=== PATIENT | male | born 1940 | race Caucasian/White ===

== ENCOUNTER 2019-11-29 15:07 | Emergency (ER) | payer MEDICARE, OTHER, SELFPAY ==
[2019-11-29] VITALS (12 sets, daily range): BP systolic 80–122; BP diastolic 46–97; PULSE 16–77; RESP 12–74; TEMP 36.4; O2SAT 74–97; BMI 29.5
--- NOTE | 2019-11-29 15:33 | EKG12_ITS ---
Test Reason : Blood Pressure : / mmHG Vent. Rate : 097 BPM Atrial Rate : 023 BPM P-R Int : 000 ms QRS Dur : 010 ms QT Int : 286 ms P-R-T Axes : 000 000 111 degrees QTc Int : 363 ms Sinus vs Ectopic Atrial Rhythm with 3:1 High Grade AV Block With a Ventricular Escape Rhythm Confirmed by MANJU MULLEN, TANI ([id number]), food editor NU US ([id number]) on 12/02/2019 11:40:33 AM Referred By: Confirmed By:TANI NUNES MD
--- NOTE | 2019-11-29 15:33 | ED.RN ---
pt being paced at 30ma 60 bpm
[2019-11-29] MEDS: Aspirin 81 MG TAB.CHEW 324 MG PO (15:41)
[2019-11-29] MEDS: Atropine Sulfate 1 MG/10 ML Syringe IV (15:43)
--- NOTE | 2019-11-29 15:51 | ED.DCSUM_ITS ---
- ER Visit Summary Date of Service: 11/29/19 Chief Complaint: Dizziness History of Present Illness: The patient is a 79 M who presents with dizziness that began today. Patient describes the dizziness as a spinning sensation. Patient states it is better with standing. EMS noted that the patient's heart rate was 36 and his blood pressure was low. EMS administered 1 mg of atropine which improved his blood pressure but not his heart rate. Patient admits to some shortness of breath and cough. Patient is a smoker however. Patient denies any chest pain or palpitations. Patient admits to subjective chills but denies any fevers. Physical Examination: Vital signs are stable except for heart rate of 23. Patient is afebrile. Patient is in no acute distress. Patient is awake, alert, and oriented x3. Cranial nerves II through XII are intact. There are no focal motor or sensory deficits noted. Oral mucosa is pink and moist. Heart was regular and bradycardic. Lungs were diminished bilaterally. There is adequate respiratory effort noted. Abdomen is soft. Bowel sounds are normal. There is no tenderness. Cranial nerves II through XII are intact. There are no focal motor or sensory deficits noted. Test Results: EKG showed third-degree heart block with a rate of approximately 20. There is some T wave inversion in the precordial leads. There are no acute ST changes. CBC was within normal limits. Basic metabolic profile showed an elevated BUN of 129 and a creatinine of 5.7. There are elevated compared to previous results from 2017. Emergency Department Course and Treatment: Patient was given another dose of atropine here. Patient was placed on transcutaneous pacer. Patient was capturing. Patient is tolerating the transcutaneous pacer. Case was discussed with Dr. Ross from cardiology. He will insert a temporary transvenous pacer. He recommended transferring the patient since Dr. Dang is out of town and he is the only one who does permanent pacemakers. Patient requested to go back to [facility] where his cardiac bypass was performed. Case was discussed with the transfer line. Patient was accepted to the service of Dr. Gallo. Patient understood and was agreeable with the plan. All questions were answered. Disposition: Transfer to [facility]. Impression: 1. Complete heart block 2. Acute kidney injury Critical care time: 45 minutes. This was time spent obtaining history, performing physical examination, documenting, interpreting test results, discussion with consultants, and determining disposition. This note was generated with Desigual dictation software. It may contain incorrect words, spelling, and punctuation that were not noted in review of the chart prior to signing ED Disposition - Plan for ED Patient: Disposition: Acute Care Hospital - Other Diagnosis: Complete heart block, Acute kidney injury Referrals: Christopher Wiseman MD [Primary Care Provider] -
[2019-11-29 15:57] LABS: Absolute Neutrophil Count 3.9 X10^3/uL (2.0-7.7); Basophil# 0.02 X10^3/uL; Basophil% 0.4 % (0-1); Eosinophil# 0.04 X10^3/uL; Eosinophils% 0.7 % (0-5); Hematocrit 39.8 % (40-54); Hemoglobin 12.5 g/dL (13.0-16.5); Lymphocyte % 18.1 % (19-41); Mean Corp Hgb Conc 31.4 g/dL (32-36); Mean Corpuscular Volume 92.3 fL (80-94); Mean Platelet Vol. 12.8 fl (6.2-12.0); Monocyte# 0.57 X10^3/uL; Monocyte% 10.3 % (0-10); NRBC Flagged by Analyzer 0 % (0-5); Neutrophil # 3.88 X10^3/uL (2.7-7.7); Neutrophil % 70.1 % (47-70); Platelet Count 127 K/mm3 (150-450); RBC Distribution Width CV 15.5 % (11.6-14.6); RBC Distribution Width SD 52.5 fl (35.1-43.9); Red Blood Count 4.31 M/mm3 (4.6-6.2); White Blood Count 5.5 K/mm3 (4.4-11.0)
--- NOTE | 2019-11-29 16:00 | RAD_ITS ---
STUDY: X-RAY CHEST REASON FOR EXAM: Male, 79 years old. INCREASED WEAKNESS TECHNIQUE: Single frontal view of the chest. COMPARISON: None. FINDINGS: There are prominent interstitial markings. There is a right pleural effusion. Sternal cerclage wires are present from a prior sternotomy. There is cardiomegaly. Normal mediastinum and tristan. Normal visualized pulmonary arteries. Normal visualized aortic arch and descending thoracic aorta. There are diffuse degenerative changes of the visualized thoracic spine. Normal visualized ribs, clavicles, and shoulders. There is no demonstrated abnormality of the visualized soft tissue structures of the upper abdomen. RAD/Chest 1 View (Portable) IMPRESSION: Prominent interstitial markings, a nonspecific finding may be secondary to underlying edema and/or an infectious process. Right pleural effusion, cannot exclude associated right basilar atelectasis and/or pneumonia. Cardiomegaly. Electronically Signed: Vidhi Melchor MD at 16:22 EDT Tel , Service support ,
--- NOTE | 2019-11-29 16:25 | CON.PCM_ITS ---
Problem List (1) Dizziness Status: Acute (2) High-grade atrioventricular block Status: Acute (3) CAD (coronary artery disease) Status: Chronic Qualifiers: Coronary Disease-Associated Artery/Lesion type: [place] artery [place] vs. transplanted heart: [place] heart Associated angina: without angina Qualified Code(s): I25.10 - Atherosclerotic heart disease of [place] coronary artery without angina pectoris (4) S/P CABG (coronary artery bypass graft) Status: Chronic (5) CHF (congestive heart failure) Status: Chronic (6) COPD (chronic obstructive pulmonary disease) Status: Chronic (7) Restless leg syndrome Status: Acute (8) Renal mass Status: Chronic Reason for Consult Date of Consultation: 11/29/19 History of Present Illness: The patient is a 79 year old white male who presents for dizziness with subsequent findings of high-grade AV block with a history of CAD, CABG, CHF, COPD, restless leg syndrome, and the reported renal mass . The patient apparently had a diagnosis of CAD and underwent CABG at [facility] in [place], [place] in 2008. He states this past summer he was at the [facility] Main campus of being evaluated for a renal mass. He did not undergo surgery based upon cardiovascular concerns with CHF. He was treated medically and lost several pounds of fluid. He was told he may have blockages but no other cardiovascular testing was performed that he recalls. He states that over the past week he has felt dizzy. He has had episodes of diarrhea. There has been no obvious fevers, chills, or night sweats. He has had no nausea or emesis. Based upon his ongoing symptoms he presented to the EMS system for evaluation. He was found to have an underlying bradycardia dysrhythmia and concerns of complete heart block . He was brought to [facility] for further evaluation. An ECG was performed which appeared to demonstrate at that time concerns of high-grade AV block with 3-1 AV block. He underwent laboratory study. His cardiac enzymes are pending at this time. His chest x-ray is pending at this time. He was placed on a temporary transcutaneous pacemaker. He was referred for cardiovascular evaluation for temporary transvenous pacemaker. At the moment he denies any ongoing chest discomfort. He states he has chronic shortness of breath related to his history of COPD. He denies any episodes of acute orthopnea or PND. There is been no near syncope or syncope reported. [] Past Medical History Allergies/Adverse Reactions: Allergies No Known Allergies Allergy (Verified 11/29/19 15:14) Home Medications: Ambulatory Orders Medication Instructions Recorded Acetaminophen/Diphenhydramine 1 each PO QHS 03/14/16 [Tylenol Pm Ex-Strength Caplet] Albuterol IH (ProAir) [Proair Hfa 1 - 2 puff INHALATION Q6H PRN PRN 03/14/16 (SP)Vent Pts] Aspirin E.C. [Ecotrin] 81 mg PO DAILY@0800 03/14/16 Carvedilol [Coreg] 3.125 mg PO BID 03/14/16 Diazepam [Valium] 5 mg PO QHS 03/14/16 Ezetimibe [Zetia] 10 mg PO DAILY 03/14/16 Losartan Potassium [Cozaar] 100 mg PO DAILY 03/14/16 Metformin HCl [Metformin HCl ER] 1,000 mg PO BID 03/14/16 Pramipexole Di-HCl [Mirapex] 0.25 mg PO TID 03/14/16 Budesonide/Formoterol Fumarate 2 gm IH BID 11/29/19 [Symbicort 160-4.5 Mcg Inhaler] Bumetanide 1 mg PO DAILY 11/29/19 Insulin Degludec [Tresiba] 20 unit SQ DAILY 11/29/19 Lovastatin 20 mg PO DAILY 11/29/19 Spironolactone 25 mg PO BID 11/29/19 Past Medical History (Chronic Problems): Chronic Problems CAD (coronary artery disease) (Chronic) S/P CABG (coronary artery bypass graft) (Chronic) CHF (congestive heart failure) (Chronic) Renal mass (Chronic) COPD (chronic obstructive pulmonary disease) (Chronic) Smoking Status: Current every day smoker Alcohol: None Drugs: None Subjectve: This is a 79-year-old white male who appears to be resting reasonably comfortably at the moment with a temporary transcutaneous pacemaker in place. Objective: Vital Signs Temp Pulse Resp BP Pulse Ox 97.6 F L 60 15 122/70 H 94 11/29/19 15:07 11/29/19 16:23 11/29/19 16:23 11/29/19 16:23 11/29/19 16:23 Oxygen Flow Rate (L/min) 3 Oxygen Delivery Method Nasal Cannula Weight: 206 lb 2.115 oz Body Mass Index (BMI) 29.5 General: Awake, Alert, Oriented x 3, Cooperative, - - Wearing O2 nasal cannula HEENT: Atraumatic, Normocephalic, PERRL Neck: Supple, Good ROM Lungs: - - No obvious rales or rhonchi Cardiovascular: Regular Rhythm, Normal S1, Normal S2 Abdomen: Bowel Sounds Present, Soft Extremities: Moderate RLE Edema, Moderate LLE Edema, - - Chronic appearing bilateral lower extremity peripheral pitting edema Psych/Mental Status: Appropriate 11/29/19 15:25: WBC 5.5, RBC 4.31 L, Hgb 12.5 L, Hct 39.8 L, MCV 92.3, MCH 29.0, MCHC 31.4 L, Plt Count 127 L, MPV 12.8 H, Immature Gran % (Auto) 0.400, Neut % (Auto) 70.1 H, Lymph % (Auto) 18.1 L, Bates % (Auto) 10.3 H, Eos % (Auto) 0.7, Baso % (Auto) 0.4, Absolute Neuts (auto) 3.9, Nucleated RBC % 0 Rhythm: Sinus rhythm with 3-1 AV block EKG: As noted above Assessment/Plan 1. Dizziness Patient presented with dizziness. This may be multifactorial. There could be a component being related to the patient's longstanding history of diarrhea and possible decreased intravascular volume affecting his hemodynamics. At the same time he has been found to have what appears to be high-grade AV block with reports of complete heart block as well as findings appearing compatible with a 3-1 AV block-with marked bradycardia. 2. High-grade AV block Again the patient's been found to have episodes of high grade AV block as noted. Certainly this can be contributing to his symptoms of dizziness. He has not had syncope. He has been undergoing evaluation emergency department. Based upon his marked bradycardia with this event he has required temporary transcutaneous pacemaking. He is being referred for temporary transvenous pacemaker. He may need a permanent pacemaker and/or depending upon his cardiovascular status consideration for an ICD. In the interim his rate limiting medication such as his low-dose beta-ramona will need to be placed on hold. 3. CAD status post CABG He has a history of CAD and CABG. Apparently this past summer the [facility] there was no report, by the patient and his family, of undergoing any other cardiovascular testing especially invasive evaluation or care. Thus the status of this is unknown at this time. He will need to continue risk factor evaluation care as deemed appropriate. 4. CHF He does have a history of CHF. He was reported as diuresing multiple pounds of fluid while at [facility] earlier this summer. He has been on medical management. The exact status of his left ventricle with respect to systolic function and EF is unknown at this time. This will need to be reassessed going forward which will help make a decision with respect to what type of device he may need be a permanent pacemaker or an ICD. 5. COPD He does have a history of COPD. He will need continue evaluation care per his primary care physicians and/or pulmonology. 6. Restless leg syndrome His family states he has restless leg syndrome. This will have to be taken into consideration with his ongoing evaluation and care. 7. Renal mass His family states he has a renal mass. Apparently it is still in place as he has not had a surgical procedure for it. This will have to be evaluated by his other physicians as deemed appropriate. Overall at the present time the patient is being referred for a temporary transvenous pacemaker. The procedure and risks were discussed with the patient with his family members present. He/they were agreeable to this. Following placement of such a device the plan is for the patient to be returned to the [facility] emergency department pending transfer to a tertiary care center where he may receive either a permanent pacemaker and/or an ICD. The above was discussed with the patient and his family members as well as the [facility] ED staff. All were agreeable to this approach. This note was generated using a voice recognition system and there may be incorrect words, spelling or punctuation that were not noted when reviewing the office note prior to saving. Procedure Criteria Procedure Type: Elective COVID Risk Discussion: The surgeon/proceduralist and patient have discussed in detail the risk of exposure to and/or potential harm posed by the COVID-19 virus with having a surgery/procedure at this time versus the risk of delaying the surgery/procedure. It is not possible to know either the risk of delaying the surgery or procedure or chance of getting an infection with perfect accuracy, but a joint decision was made between the patient and the surgeon/proceduralist to proceed at this time with the scheduled surgery/procedure as indicated on the consent form.
[2019-11-29 16:39] LABS: Anion Gap 10 (5-15); BUN 129 mg/dL (7-18); BUN/Creat Ratio 22.4 RATIO (10-20); Calcium,Total 7.8 mg/dL (8.5-10.1); Chloride 102 mmol/L (98-107); Creatinine, Serum 5.76 mg/dL (0.70-1.30); EST Glomerular Filtration Rate 10 mL/min (>60); Est Glom Filt Rate - Afr Amer 12 mL/min (>60); Estimated Creatinine Clearance 11.09 ml/min; Glucose 65 mg/dL (74-106); Potassium 4.9 mmol/L (3.5-5.1); Sodium Level 135 mmol/L (136-145)
--- NOTE | 2019-11-29 16:45 | NURSING ---
dr talley aware bun 129
--- NOTE | 2019-11-29 18:00 | PCM.OP.PRO ---
Problem List (1) Dizziness Status: Acute (2) High-grade atrioventricular block Status: Acute (3) CAD (coronary artery disease) Status: Chronic Qualifiers: Coronary Disease-Associated Artery/Lesion type: [place] artery [place] vs. transplanted heart: [place] heart Associated angina: without angina Qualified Code(s): I25.10 - Atherosclerotic heart disease of [place] coronary artery without angina pectoris (4) S/P CABG (coronary artery bypass graft) Status: Chronic (5) CHF (congestive heart failure) Status: Chronic (6) COPD (chronic obstructive pulmonary disease) Status: Chronic (7) Restless leg syndrome Status: Acute (8) Renal mass Status: Chronic Procedure Report Date of Procedure: 11/29/19 Date: 11-29-2019 Procedure: Temporary transvenous pacemaker Indications: Symptomatic high-grade AV block Consent: Per patient Sedation: None Local anesthesia: 2% Xylocaine Procedure: The right internal jugular vein area was prepped and draped in the standard sterile fashion. Using the ultrasound technique the right internal jugular vein was accessed and subsequently a #5 [place] venous sheath was placed. A #5 [place] wound tipped temporary transvenous pacemaker wire was subsequently advanced under fluoroscopic guidance to the level of the right ventricle. The temporary transvenous pacemaker was activated and was noted to have subsequent settings of 70 ppm with a sensitivity of 5 mA and an output of 10 V. The temporary transvenous pacemaker appear to be capturing appropriately. The device was secured in place with 2-0 silk and subsequent protective sheath. Complications: No apparent complications by fluoroscopic evaluation or auscultation. Of note: The patient was returned to the [facility] emergency department for subsequent transfer to a tertiary care center for additional evaluation and care. This note was generated using a voice recognition system and there may be incorrect words, spelling or punctuation that were not noted when reviewing the office note prior to saving.
[2019-11-29] MEDS: Pramipexole Di-HCl 0.25 MG Tablet PO (18:36)
== END 2019-11-29 23:27 | disposition short-term general hospital (02) ==
LOC: ED 16:13
PROVIDERS: Emergency Provider Emergency Medicine; PCP Family Medicine
DX: I44.2 Atrioventricular block, complete (principal); N17.9 Acute kidney failure, unspecified; R19.7 Diarrhea, unspecified; I50.9 Heart failure, unspecified; J44.9 Chronic obstructive pulmonary disease, unspecified; N28.89 Other specified disorders of kidney and ureter; I25.10 Atherosclerotic heart disease of native coronary artery without angina pectoris; G25.81 Restless legs syndrome; Z95.1 Presence of aortocoronary bypass graft; Z79.4 Long term (current) use of insulin; Z79.82 Long term (current) use of aspirin; Z79.899 Other long term (current) drug therapy; F17.200 Nicotine dependence, unspecified, uncomplicated
CPT/HCPCS: 33210; 71045; 76937; 80048; 84484; 85025; 93005; 96374; 99285; J7030; C1894